=== PATIENT | male | born 2000 | race Two or more races ===

== ENCOUNTER 2019-05-28 10:00 | Emergency (ER) | payer SELFPAY ==
[~2019-05-28] VITALS: Ht 170.2 cm; Wt 74.8 kg
[2019-05-28 10:20] VITALS: BP 133/78
--- NOTE | 2019-05-28 10:20 | NUR ---
ED Nurse Note: AMBULATED IN TO ED DUE TO PAIN ON RIGHT 5TH DIGIT X1DAY. PT REPORTS THAT HE HEARD THE "POP" NOISE WHEN HE WAS PLAYING WITH HIS DOG. CMS INTACT. NO TRAUMA NOTED.
--- NOTE | 2019-05-28 11:04 | Emergency Room Report ---
History of Present Illness General Chief Complaint: Upper Extremity Injury Source: Patient Present Illness HPI Patient is a 19-year-old male who presents after injury to his right hand. Patient reports having injured his right small finger. Reports being right- hand dominant. He denies of the locations of injury or pain. Injury occurred last night. Reports having sharp pain worse with movement. Allergies: Coded Allergies: No Known Allergies (Unverified , 05/28/19) Patient History Past Medical History: see triage record Reviewed Nursing Documentation: PMH: Agreed; PSxH: Agreed Nursing Documentation-PMH Past Medical History: No Stated History Review of Systems All Other Systems: negative except mentioned in HPI Physical Exam Vital Signs Date Time Temp Pulse Resp B/P (MAP) Pulse Ox O2 Delivery O2 Flow Rate FiO2 05/28/19 10:07 98.2 67 18 133/78 (96) 100 Room Air General Appearance: well appearing, no apparent distress, alert, GCS 15 Head: normocephalic, atraumatic ENT: hearing grossly normal, normal voice Neck: full range of motion, supple Respiratory: no respiratory distress, speaking full sentences Gastrointestinal: normal inspection Musculoskeletal: normal inspection, other - Decreased range of motion of the right hand small finger, tenderness - no ligmanentous laxity Neurologic: normal inspection, alert, oriented x3, responsive, lunchroom attendant III-XII nml as tested, motor strength/tone normal, normal gait Psychiatric: normal inspection, mood/affect normal Skin: normal inspection, no rash Medical Decision Making Diagnostic Impression: Primary Impression: Finger sprain ER Course Patient presented for right small finger pain. Differential diagnosis include was not limited to fracture, dislocation, contusion, sprain among others. X- ray imaging showed no evident fracture. Patient be discharged home. Patient is placed in a Aluminum Foam splint. Patient appears to be stable for discharge. Is advised to take nonsteroidal anti-inflammatory medications. Is to return if any concerns. Last Vital Signs Date Time Temp Pulse Resp B/P (MAP) Pulse Ox O2 Delivery O2 Flow Rate FiO2 05/28/19 10:20 98.2 67 18 133/78 100 Room Air Status: improved Disposition: HOME, SELF-CARE Condition: Stable Scripts Ibuprofen* (MOTRIN*) 600 Mg Tablet 600 MG ORAL Q8H PRN for For Pain, #30 TAB 0 Refills Prov: Cole Magana MD 05/28/19 Cole Magana MD May 28, 2019 11:04
[2019-05-28] MEDS ORDERED: IBUPROFEN600 MG ORAL (11:59)
--- NOTE | 2019-05-28 12:05 | NUR ---
ED Nurse Note: finger splint applied as ordered by DR Sanchez on the right 5th digit
[2019-05-28 12:06] VITALS: BP 133/78
--- NOTE | 2019-05-28 12:07 | NUR ---
ER DISCHARGE NOTE: Patient is cleared to be discharged per ERMD DR LYMAN, pt is aox4, on room air, with stable vital signs. pt was given dc and prescription instructions, pt was able to verbalize understanding, pt id band removed without complications. pt is able to ambulate with steady gait. pt took all belongings.
--- NOTE | 2019-05-28 12:43 | Diagnostic Imaging Report ---
Indication: Right hand pain Findings: 3 views of the right hand were obtained. Normal bony mineralization and alignment are demonstrated. No acute fractures, erosions, or periosteal reaction are seen. Soft tissues are unremarkable. Impression: No acute findings.
== END 2019-05-28 12:06 | disposition home or self-care (01) ==
LOC: EMR 11:18
DX: S63.616A Unspecified sprain of right little finger, initial encounter (principal); X58.XXXA Exposure to other specified factors, initial encounter; Y92.9 Unspecified place or not applicable
CPT/HCPCS: 29130; 99283